=== PATIENT | male | born 1965 | race Caucasian/White ===

== ENCOUNTER 2024-11-05 18:55 | Emergency (ER) | payer OTHER, SELFPAY ==
--- NOTE | ~2024-11-05 | CT_ITS ---
EXAMINATION: CT pelvis wo con DATE: 11/05/2024 22:09 INDICATION: Urinary retention. TECHNIQUE: Computed tomography (CT) of the pelvis was performed without intravenous contrast. Automat ed exposure control and iterative reconstruction technique were employed. The dose-length product was 361.55 mGy-cm. COMPARISON: None FINDINGS: There are bilateral inguinal hernias containing fat. There are no dilated loops of bowel. T he appendix is normal. The prostate is mildly enlarged. There is diffuse bladder wall thickening, lik guzman secondary to chronic outlet obstruction. There are no pathologically enlarged lymph nodes. There is no free intraperitoneal fluid. There is mild lumbar spondylosis. IMPRESSION: 1. Diffuse bladder wall thickening, likely secondary to chronic outlet obstruction from the mildly en larged prostate. Reviewed, dictated and finalized at location A. [facility] IMPRESSION: 1. Diffuse bladder wall thickening, likely secondary to chronic outlet obstruct ion from the mildly enlarged prostate.
[2024-11-05 18:58] VITALS: BP 148/120; PULSE 92; RESP 20; TEMP 36.9; O2SAT 99
[2024-11-05 19:46] LABS: Add Urine Microscopic? NO; Appearance Urine Clear (Clear); Bilirubin Urine Negative (Negative); Blood Urine Negative (Negative); Color Urine Yellow (Yellow); Glucose Urine UA Negative (Negative); Ketones Urine Negative (Negative); Leukocyte Esterase Ur Negative LEU/UL (Negative); Nitrate Urine Negative (Negative); Protein Urine Negative (Negative); Specific Grav Ur 1.016 (1.001-1.035); Urobilinogen Urine 0.2 mg/dL (<2.0); pH Urine 5.5 (5.0-9.0)
--- NOTE | 2024-11-05 21:41 | ED.MALEGU ---
HPI - Male Genitourinary General Chief complaint: Urogenital-Male Stated complaint: unable to empty bladder X1 year Time Seen by Provider: 11/05/24 21:20 History of Present Illness HPI Narrative: 58-year-old male presenting to the emergency department accompanied by his daughter for concerns of prostate issues and urinary retention for over a year. Patient denies any symptoms aside from frequency and incomplete emptying. He states he has a family history of prostate cancer, denies any symptoms such as weight loss, fever, chills, back pain, urinary tract infection symptoms. His daughter is worried about prostate cancer. Patient herself is otherwise not concerned at this time a denies any symptoms, denies wanting a Rosenthal catheter even if he does have evidence of obstruction. Does not take any medications. Has not been seen by primary care provider in over 10 years as he was incarcerated Related Data Allergies Allergy/AdvReac Type Severity Reaction Status Date / Time No Known Allergies Allergy Verified 11/05/24 19:02 Review of Systems Review of Systems: As reviewed above in HPI Exam Narrative: GENERAL: [Well-appearing, well-nourished, and in no acute distress.] HEAD: [Normocephalic, atraumatic.] EYES: [PERRLA and EOMI.] ENT: Nares clear, no rhinorrhea or epistaxis. Mucous membranes moist. NECK: Supple. CHEST: [Clear to auscultation. No respiratory distress.] HEART: [Regular rate and rhythm]. No murmur heard. [Normal peripheral pulses.] ABDOMEN: [Soft, nondistended], [nontender], [No rigidity or guarding] EXTREMITIES: Normal range of motion. [No edema.] SKIN: Warm, dry, no rash. NEURO: [No focal deficits]. Alert and oriented [x3.] PSYCH: [Normal mood and affect.] Course Vital Signs Vital signs: Vital Signs Temperature 36.9 C 11/05/24 18:58 Pulse Rate 92 11/05/24 18:58 Respiratory Rate 20 11/05/24 18:58 Blood Pressure 148/120 H 11/05/24 18:58 Pulse Oximetry 99 11/05/24 18:58 Oxygen Delivery Room Air 11/05/24 18:58 Temperature 36.9 C 11/05/24 18:58 Pulse Rate 92 11/05/24 18:58 Respiratory Rate 20 11/05/24 18:58 Blood Pressure 148/120 H 11/05/24 18:58 Pulse Oximetry 99 11/05/24 18:58 Oxygen Delivery Room Air 11/05/24 18:58 MDM - Male Genitourinary MDM Narrative Medical decision making narrative: 58-year-old male with no reported past medical history presenting for ongoing urinary retention type symptoms for over a year including incomplete bladder emptying, frequency and hesitancy. Family history of prostate cancer. Patient of self has no B symptoms, no fever, chills, no abdominal pain or pelvic pain. He is soft nontender nondistended abdomen. Vital signs are reassuring without any tachycardia, fever, hypoxia. Daughter is expressing concern over prostate cancer and requesting workup. Urinalysis was obtained and unremarkable without a signs of infection or blood. Postvoid residual was conducted and shows a bladder volume of 126 mL. Patient is asymptomatic. A CT scan of the pelvis for attention to the prostate was ordered to assess for any enlargement or malignancy signs. Patient would likely benefit from Flomax for symptomatic BPH and establishing with a primary care provider which will provide for him upon discharge. CT scan shows BPH and chronic urinary retention type symptoms with bladder wall thickening but he has no evidence of urinary tract infection. He is not retaining significant meds urine and refused catheterization even if he was. Patient is safe and stable for discharge home at this time and will be sent home with Flomax and a referral to establish with a PCP. Patient and family were appreciative of this plan of care and safe for discharge with return precautions. Medical Records Attestation: I reviewed the patient's medical records. Lab Data Attestation: I reviewed the patient's lab results. Labs: Lab Results 11/05/24 Range/Units 19:38 Urine Color Yellow (Yellow) Urine Appearance Clear (Clear) Urine pH 5.5 (5.0-9.0) Ur Specific [place] 1.016 (1.001-1.035) Urine Protein Negative (Negative) mg/dL Urine Glucose (UA) Negative (Negative) mg/dL Urine Ketones Negative (Negative) mg/dL Ur Blood (Man) Negative (Negative) Urine Nitrate Negative (Negative) Urine Bilirubin Negative (Negative) Urine Urobilinogen 0.2 (<2.0) mg/dL Leukocyte Esterase Rfl Negative (Negative) KELVIN/UL Imaging Data Attestation: I personally reviewed and interpreted this imaging study as follows: My impression: Impressions Pelvis CT 11/05/24 22:13 IMPRESSION: 1. Diffuse bladder wall thickening, likely secondary to chronic outlet obstruction from the mildly enlarged prostate. Discharge Plan Discharge Clinical Impression: Acute on chronic urinary retention, Enlarged prostate Patient Disposition: Home, Self-Care Condition: Stable Instructions: Antibiotic Form, Urinary Retention in Men (ED), Enlarged Prostate (BPH) (ED) Additional Instructions: Your CT scan shows an enlarged prostate but no pathologically enlarged lymph nodes or any masses that appear suspicious for malignancy. This is likely the etiology behind your urinary retention type symptoms over the past year. No present concerns for malignancy however we do need to follow-up with a primary care provider for evaluation and treatment and possibly referral to a urologist. We will start him on Flomax which is a medication assisted urination in people who have enlarged prostate. If you have any new or worsening concerns or unable to urinate or void at all please return to the emergency department. Patient Language: Slovak Prescriptions: New tamsulosin [Flomax] 0.4 mg capsule 0.4 mg PO DAILY Qty: 30 0RF Follow-up/Referrals: Gigi Wright MD [Physician] - 1 Week (Establish care for PCP. BPH) PHYSICIAN,DICTATING MACHINE MECHANIC [Primary Care Provider] - Time of Disposition: 22:30
--- OUTSIDE RECORDS SUMMARY | 2024-11-05 21:47 | XMS_ITS | Continuity of Care Document ---
Author Organization [facility] Address [address] [place] [address] Phone Care Team Providers Care Business Process Engineer Name Role Phone Management, Case Unavailable Unavailable Unavailable Unavailable Unavailable Procedures Procedure Date OFFICE O/P EST 5 MIN Advance Directives Directive Yes / No Effective Date File Name No Information Encounters Encounter Description Practice Location Reason(s) For Visit Diagnoses Date Provider Providers Copied on Encounter [facility] , [address], [place], [place], [address], tel:[phone] [facility] Asthma (chief complaint)a ppointment (chief complaint) No Information Management Case. [address], [place], [place], [address], [place]. tel:[phone] OFFICE O/P EST 5 MIN [facility] , [address], [place], [place], [address], tel:[phone] [facility] Asthma (chief complaint) Counseling, Other, Specified Management Case. [address], [place], [place], [address], . tel:[phone] Family History Family Member Type Diagnosis Age At Onset No Information Payers Payer name Insurance type Covered democrat ID Authoriza tion(s) No Information Social History Type Description Quantity Date Captured Comments Sex Male Smoking Status No Information Chief Complaint And Reason For Visit From encounter dated '07/10/2014 09:09'. Asthma (chief complaint) appointment (chief complaint) Reason For Referral Reason For Referral No Information History Of Present Illness Encounter Date Complaint History Of Prese nt Illness Asthma appointment Asthma The initial visi t date was 07/03/2014. Additional information: Pt seen at [facility] at 8pm. Pt states sharing inhaler; smokes >1 ppd. Instructed pt on importance of taking own meds as directed by PCP, and s/s to seek emergent or medical care. Pt verb interest in appt. Informed pt will contact him when one is scheduled. Pt verb understanding. No other needs identified at this time (late entry). Functional Status Date Functional Assessmen t No Information Instructions Date Instruction Additional Infor mation No Information Assessments Type Assessment Date No Information Patient Care Teams Name Effective Dates (start - stop) Status Members No Information
--- OUTSIDE RECORDS SUMMARY | 2024-11-05 21:47 | XMS_ITS | Clinical Summary ---
Author Organization [facility] Address [address] [place] [address]. [place], [place] [address] [place] [id number] Care Team Providers Care Glass Mechanic Name Role Phone None, Provider Primary Care Provider Unavaila ble Allergies No known active allergies Medications No known medications Encounters Date Type Department Care Team Description 10/27/2024 6:23 PM HEEL SPLITTER - 10/27/2024 9:37 PM HEEL SPLITTER Emergency [facility] [place] [address] Maggy Khan DO Urinary Symptoms; Neurologic Problem Discharge Disposition: Home or Self Care (Routine Discharge) 10/27/2024 Travel from Last 3 Months Social History Tobacco Use Types Packs/Day Years Used Date Smoking Tobacco: Every Day Cigarettes Smokeless Tobacco: Never Tobacco Cessation:Ready to Q uit: No; Counseling Given: Not Answered Alcohol Use Standard Drinks/Week Comments Not Currently 0 (1 standard drink = 0.6 oz pur e alcohol) Sex and Gender Information Value Date Recorded Sex Assigned at Male 10/27/2024 6:43 PM HEEL SPLITTER Legal Sex Male 6:07 PM HEEL SPLITTER Gender Identity Not on file Sexual Orientation Not on file Last Filed Vital Signs Vital Sign Reading Time Taken Comments Blood Pressure 131/82 10/27/2024 9:02 PM HEEL SPLITTER Pulse 85 10/27/2024 9:02 PM HEEL SPLITTER Temperature 36.7 ??C (98 ??F) 10/27/2024 7:04 PM HEEL SPLITTER Respiratory Rate 20 10/27/2024 9:02 PM HEEL SPLITTER Oxygen Saturation 98% 10/27/2024 9:02 PM HEEL SPLITTER Inhaled Oxygen Concentration - - Weight 70.3 kg (155 lb) 10/27/2024 6:17 PM HEEL SPLITTER Height 172.7 cm (5' 8 ) 10/27/2024 6:17 PM HEEL SPLITTER Body Mass Index 23.57 10/27/2024 6:17 PM HEEL SPLITTER Plan of Treatment Health Maintenance Due Date Last Done Comments Colorectal Cancer Screening Colonoscopy (10 Years) 1965 Annual Physical 1967 Pneumococcal Vaccine: Pediat rics (0 to 5 Years) and At-Risk Patients (6 to 64 Years) (1 of 2 - PCV) 1970 Hepatitis C 1982 DTaP, Tdap and Td Vaccines ( 1 - Tdap) 1983 Zoster Vaccines (1 of 2) 2014 COVID-19 Vaccine ( - 2023-2 5 season) 2024 Influenza Adult (#1) 2024 Meningococcal B Vaccine Aged Out No l onger eligible based on patient's age to complete this topic Meningococcal Vaccine Aged Out No pete len eligible based on patient's age to complete this topic RSV Immunizations Under 20 Months Aged Out No longer eligible based on patient's age to complete this topic Procedures Procedure Name Priority Date/Time Associated Diagnosis Comments ECG 12-LEAD STAT 10/27/2024 8:24 PM HEEL SPLITTER URINALYSIS, AUTO, COMPLETE STAT 10/27/2024 7:13 PM HEEL SPLITTER COMPREHENSIVE METABOLIC PANEL STAT 10/27/2024 7:13 PM HEEL SPLITTER CBC W/DIFF AUTOMATED STAT 10/27/2024 7:13 PM HEEL SPLITTER from Last 3 Months Results * ECG 12 lead (10/27/2024 8:24 PM HEEL SPLITTER) 10/27/2024 8:24 PM HEEL SPLITTER Narrative [facility] ([facility]) RAD - 10/28/2024 8:52 AM HEEL SPLITTER ?[facility] ? [address], [place] ? Test Date: ?2024-10-27 Pat Name: ? PEE HURTADO ?Department: ?? 41 ? Room: ? [id number] Gender: ? Male ? Solar Electric Practitioner: ?? Cb : ?1965 ? Requested By: MAGGY KHAN Order Number: [id number] ? Reading MD: ?? Makenzie Najera ? Measurements Intervals ?[place] ? Rate: ? 76 ? P: ?72 ND: ? 153 ?QRS: ?51 QRSD: ? 89 ? T: ?73 QT: ? 386 ? QTc: ?435 ? Interpretive Statements SINUS RHYTHM MINIMAL VOLTAGE CRITERIA FOR LVH, CONSIDER NORMAL VARIANT ??[MEETS CRITERIA IN ONE OF: R(aVL), S(V1), R(V5), R(V5/V6)+S(V1)] Non-specific ST-T wave changes SPLITTER Procedure Note Makenzie Najera MD - 10/28/[address] Test Date: 2024-10-27 Pat Name: PEE VAISHNAVIADWOA Department: 41 Room: [place] [address] Gender: Male Solar Electric Practitioner: Ja : 1965 Requested By: MAGGY KHAN Order Number: [id number] Reading MD: Makenzie Najera Measurements Intervals [place] Rate: 76 P: 72 ND: 153 QRS: 51 QRSD: 89 T: 73 QT: 386 QTc: 435 Interpretive Statements SINUS RHYTHM MINIMAL VOLTAGE CRITERIA FOR LVH, CONSIDER NORMAL VARIANT [MEETS CRITERIAIN ONE OF: R(aVL), S(V1), R(V5), R(V5/V6)+S(V1)] Non-specific ST-T wave changes SPLITTER Maggy Khan DO ECG ORDERABLES Final Result [facility] ([facility]) RAD * (ABNORMAL) URINALYSIS, AUTO, COMPLETE (10/27/2024 7:13 PM HEEL SPLITTER) SPECIMEN TYPE URINE CLEAN CATCH 10/27/2024 6:41 PM HEEL SPLITTER [facility] COLOR (U) COLORLESS 10/27/2024 7:25 PM [facility] TRANSPARENCY CLEAR 10/27/2024 7:25 PM [facility] SPECIFIC GRAVITY (U) 1.005 1.001 - 1.030 10/27/2024 7:25 PM [facility] U PH 5.5 5.0 - 9.0 10/27/2024 7:25 PM [facility] LEUKOCYTES (U) NEGATIVE NEGATIVE 10/27/2024 7:25 PM [facility] NITRITES NEGATIVE NEGATIVE 10/27/2024 7:25 PM [facility] PROTEIN RANDOM (U) NEGATIVE <30 MG/DL 10/27/2024 7:25 PM [facility] GLUCOSE (U) NORMAL NORMAL MG/DL 10/27/2024 7:25 PM [facility] KETONES MG/DL (U) NEGATIVE NEGATIVE MG/DL 10/27/2024 7:25 PM [facility] UROBILINOGEN NORMAL NORMAL MG/DL 10/27/2024 7:25 PM [facility] BILIRUBIN (U) NEGATIVE NEGATIVE MG/DL 10/27/2024 7:25 PM [facility] BLOOD (U) NEGATIVE NEGATIVE 10/27/2024 7:25 PM [facility] WBC/HPF <1 <6 /HPF 10/27/2024 7:25 PM [facility] RBC/HPF 2 <6 /HPF 10/27/2024 7:25 PM [facility] BACTERIA (U) RARE(A) NONE /HPF 10/27/2024 7:25 PM [facility] URINE SPECIMEN OBTAINED BY CLEAN CATCH PROCEDURE / Unknown 10/27/2024 7:13 PM HEEL SPLITTER us Jani FARIAS URINE ORDERABLES Final Res ult [facility] [address] [place] [address], [place] [phone] * (ABNORMAL) COMPREHENSIVE METABOLIC PANEL (10/27/2024 7:13 PM HEEL SPLITTER) [facility] GLUCOSE 92 70 - 99 MG/DL 10/27/2024 7:36 PM HEEL SPLITTER [facility] BUN 11 7 - 18 MG/DL 10/27/2024 7:36 PM HEEL SPLITTER [facility] CREATININE S/P/B 1.12 0.7 - 1.3 MG/DL 10/27/2024 7:36 PM HEEL SPLITTER [facility] SODIUM S/P/B 134(L) 136 - 145 MMOL/L 10/27/2024 7:36 PM HEEL SPLITTER [facility] POTASSIUM S/P/B 3.7 3.5 - 5.1 MMOL/L 10/27/2024 7:36 PM HEEL SPLITTER [facility] CHLORIDE S/P/B 103 97 - 115 MMOL/L 10/27/2024 7:36 PM HEEL SPLITTER [facility] CO2 29.2 21 - 32 MMOL/L 10/27/2024 7:36 PM HEEL SPLITTER [facility] CALCIUM S/P/B 9.5 8.5 - 10.1 MG/DL 10/27/2024 7:36 PM HEEL SPLITTER [facility] BILIRUBIN TOTAL S/P/B 0.3 0.2 - 1.2 MG/DL 10/27/2024 7:36 PM [facility] Comment: THIS ASSAY IS NOT RECOMMENDED FOR PATIENTS UNDERGOING TREATMENT WITH ELTROMBOPAG DUE TO THE POTENTIAL FOR FALSELY ELEVATED RESULTS. TOTAL PROTEIN S/P/B 7.0 6.4 - 8.2 G/DL 10/27/2024 7:36 PM HEEL SPLITTER [facility] ALBUMIN S/P/B 3.7 3.4 - 5.0 G/DL 10/27/2024 7:36 PM [facility] AST 19 15 - 37 U/L 10/27/2024 7:36 PM [facility] ALT 36 16 - 60 U/L 10/27/2024 7:36 PM HEEL SPLITTER [facility] ALKALINE PHOSPHATASE S/P/B 83 50 - 136 U/L 10/27/2024 7:36 PM [facility] ANION GAP 1.8(L) 2 - 10 MMOL/L 10/27/2024 7:36 PM [facility] BUN CREATININE RATIO 9.8 6 - 26 10/27/2024 7:36 PM [facility] A/G RATIO 1.1 1.0 - 2.0 RATIO 10/27/2024 7:36 PM [facility] GFR ESTIMATE 76(L) >90 ML/MIN/1.7 3 M2 10/27/2024 7:36 PM [facility] Comment: NOTE: eGFR is not calculated for patients <18 years of age or gender unknown. This is an estimated GFR calculation using the new CKD EPI creatinine equation without race and so does not require a correction factor for race. This estimated GFR should not be used for calculating drug doses. 10/27/2024 7:13 PM HEEL SPLITTER us Jani [facility] Final Resu lt [facility] [address] [place] [address], [place] [phone] * (ABNORMAL) CBC W/DIFF AUTOMATED (10/27/2024 7:13 PM HEEL SPLITTER) WBC 8.58 4.5 - 11.0 x10'3/uL 10/27/2024 7:22 PM [facility] RBC 5.22 4.70 - 6.10 x10'6/uL 10/27/2024 7:22 PM [facility] HGB 15.2 14.0 - 18.0 G/DL 10/27/2024 7:22 PM [facility] HCT 44.8 43.0 - 54.0 % 10/27/2024 7:22 PM [facility] MCV 85.8 80.0 - 94.0 FL 10/27/2024 7:22 PM [facility] MCH 29.1 27.0 - 31.0 PG 10/27/2024 7:22 PM [facility] MCHC 33.9 32.0 - 36.0 G/DL 10/27/2024 7:22 PM [facility] RDW 13.2 11.5 - 14.5 % 10/27/2024 7:22 PM [facility] PLT 264 130 - 400 x10'3/uL 10/27/2024 7:22 PM [facility] MPV 10.2 9.3 - 12.2 FL 10/27/2024 7:22 PM [facility] DIFFERENTIAL TYPE AUTOMATED DIFFERENTIAL 10/27/2024 7:22 PM [facility] NEUTROPHILS % 61.7 % 10/27/2024 7:22 PM [facility] LYMPHOCYTES % 22.5 % 10/27/2024 7:22 PM [facility] MONOCYTES % 11.4 % 10/27/2024 7:22 PM [facility] EOSINOPHILS 3.4 % 10/27/2024 7:22 PM HEEL SPLITTER [facility] BASOPHILS 0.8 % 10/27/2024 7:22 PM HEEL SPLITTER [facility] IMMATURE GRANS % 0.2 % 10/27/19 7:22 PM HEEL SPLITTER [facility] ABS. NEUTROPHILS 5.29 1.80 - 7.70 x10'3/uL 10/27/2024 7:22 PM HEEL SPLITTER [facility] ABS. LYMPHOCYTES 1.93 1.00 - 4.80 x10'3/uL 10/27/2024 7:22 PM HEEL SPLITTER [facility] ABS. MONOCYTES 0.98(H) 0.30 - 0.82 x10'3/uL 10/27/2024 7:22 PM HEEL SPLITTER [facility] ABS. EOSINOPHILS 0.29 0.04 - 0.54 x10'3/uL 10/27/2024 7:22 PM HEEL SPLITTER [facility] ABS. BASOPHILS 0.07 0.01 - 0.08 x10'3/uL 10/27/2024 7:22 PM HEEL SPLITTER [facility] ABS. IMMATURE GRANULOCYTES 0.02 0.00 - 0.49 x10'3/uL 10/27/2024 7:22 PM [facility] 10/27/2024 7:13 PM HEEL SPLITTER us Jani [facility] Final Resu lt [facility] [address] [place] [address], from Last [address] [place] [address] [place] [address] Care Teams Glass Mechanic Relationship Specialty Start Date End Date None, Provider, MD PCP - General UNKNOWN PHYSICIAN SPECIALTY 10/27/24
[2024-11-05 22:56] VITALS: BP 142/95; PULSE 81; RESP 17; TEMP 36.4; O2SAT 98
== END 2024-11-05 22:56 | disposition home or self-care (01) ==
PROVIDERS: Emergency Provider Student in an Organized Health Care Education/Training Program
DX: R33.9 Retention of urine, unspecified (principal); N40.0 Benign prostatic hyperplasia without lower urinary tract symptoms
CPT/HCPCS: 72192; 81003; 99284

== ENCOUNTER 2024-11-25 09:06 | Outpatient (CLI) | payer OTHER, SELFPAY ==
[2024-11-25 09:47] LABS: Basophils Absolute Auto 0.1 K/mm3 (0.0-0.1); Basophils Percent Auto 1.1 % (0.2-1.2); Eosinophils Absolute Auto 0.3 K/mm3 (0-0.3); Eosinophils Percent Auto 3.7 % (0-4.4); Hematocrit 47.6 % (42.0-52.0); Hemoglobin 15.3 g/dL (14.0-18.0); Immature Granulocyte Absolute 0.01 K/mm3 (0.00-0.031); Immature Granulocyte Percent A 0.1 % (0-0.5); Lymphocytes Absolute Auto 1.84 K/mm3 (0.9-3.2); Lymphocytes Percent Auto 23.3 % (18.3-44.2); Mean Corpuscular HGB Conc 32.1 g/dl (32-36); Mean Corpuscular Volume 90.2 fl (80-100); Monocytes Absolute Auto 0.9 K/mm3 (0.1-0.6); Monocytes Percent Auto 11.4 % (2.6-8.5); Neutrophils Absolute Auto 4.8 K/mm3 (1.3-6.7); Neutrophils Percent Auto 60.4 % (45.5-73.1); Platelet Count Result 250 k/mm3 (150-375); Red Blood Count 5.28 M/mm3 (4.6-6.20); Red Cell Distribution Width 13.3 % (11.5-14.5); White Blood Count 7.9 K/mm3 (4.5-10.0)
[2024-11-25 09:59] LABS: Alanine Aminotransferase 24 U/L (6-50); Albumin Level 4.1 g/dL (3.5-5.1); Alkaline Phosphatase 75 U/L (38-126); Anion Gap 6 mmol/L (4-12); Aspartate Amino Transferase 25 U/L (17-59); Bilirubin,Total 0.7 mg/dL (0.2-1.3); Blood Urea Nitrogen 14 mg/dL (9-20); Calcium 9.5 mg/dL (8.4-10.2); Carbon Dioxide 31 mmol/L (22-30); Chloride 99 mmol/L (98-107); Cholesterol 231 mg/dL (0-200); Estimated Glomerular Filt Rate > 60; Glucose 75 mg/dL (65-110); HDL Direct 82 mg/dL; Potassium 4.4 mmol/L (3.4-5.0); Sodium 136 mmol/L (137-145); Triglycerides 84 mg/dL (<150)
[2024-11-25 10:10] LABS: LDL Cholesterol Direct 134 mg/dL
[2024-11-25 10:30] LABS: Prostate Specific Antigen 1.2 ng/mL (< OR = 4.0); Thyroid Stimulating Hormone 0.951 uIU/mL (0.465-4.680); Total Triiodothyronine (T3) 1.35 NG/ML (0.97-1.69)
[2024-11-25 11:09] LABS: Free T4 Free Thyroxine 0.97 ng/dL (0.78-2.19)
[2024-11-25 11:40] LABS: Hepatitis C Virus Antibody Negative (Negative)
--- OUTSIDE RECORDS SUMMARY | 2024-11-25 11:55 | XMS_ITS | Continuity of Care Document ---
Author Organization [facility] Address [address] [place] [address] Phone Care Team Providers Care Basket Sorter Name Role Phone Management, Case Unavailable Unavailable Unavailable Unavailable Unavailable Procedures Procedure Date OFFICE O/P EST 5 MIN Advance Directives Directive Yes / No Effective Date File Name No Information Encounters Encounter Description Practice Location Reason(s) For Visit Diagnoses Date Provider Providers Copied on Encounter [facility] , [address], [place], [place], [address], tel:[phone] [facility] Asthma (chief complaint)a ppointment (chief complaint) No Information Management Case. [address], [place], [place], [address], [place]. tel:[phone] OFFICE O/P EST 5 MIN [facility] , [address], [place], [place], [address], tel:[phone] [facility] Asthma (chief complaint) Counseling, Other, Specified Management Case. [address], [place], [place], [address], . tel:[phone] Family History Family Member Type Diagnosis Age At Onset No Information Payers Payer name Insurance type Covered alliance party ID Authoriza tion(s) No Information Social History [...] was 07/03/2014. Additional information: Pt seen [facility] at 8pm. Pt states sharing inhaler; smokes [...]
--- OUTSIDE RECORDS SUMMARY | 2024-11-25 11:55 | XMS_ITS | Clinical Summary ---
Author Organization [facility] Address [facility] [place] [address] Care Team Providers Care Bromination Equipment Operator Name Role Phone None, Provider MD Primary Care Provider Unavaila ble Allergies No known active allergies Medications No known medications Encounters Date Type Department Care Team Description 10/27/2024 6:23 PM NON DESTRUCTIVE TESTING SUPERVISOR - 10/27/2024 9:37 PM NON DESTRUCTIVE TESTING SUPERVISOR Emergency [facility] [place] [address] Maggy Khan DO Urinary Symptoms; Neurologic Problem [...] Sex Assigned at Male 10/27/2024 6:43 PM NON DESTRUCTIVE TESTING SUPERVISOR Legal Sex Male 6:07 PM NON DESTRUCTIVE TESTING SUPERVISOR Gender Identity Not on file Sexual Orientation Not on file Last Filed Vital Signs Vital Sign Reading Time Taken Comments Blood Pressure 131/82 10/27/2024 9:02 PM NON DESTRUCTIVE TESTING SUPERVISOR Pulse 85 10/27/2024 9:02 PM NON DESTRUCTIVE TESTING SUPERVISOR Temperature 36.7 C (98 F) 10/27/2024 7:04 PM NON DESTRUCTIVE TESTING SUPERVISOR Respiratory Rate 20 10/27/2024 9:02 PM NON DESTRUCTIVE TESTING SUPERVISOR Oxygen Saturation 98% 10/27/2024 9:02 PM NON DESTRUCTIVE TESTING SUPERVISOR Inhaled Oxygen Concentration - - Weight 70.3 kg (155 lb) 10/27/2024 6:17 PM NON DESTRUCTIVE TESTING SUPERVISOR Height 172.7 cm (5' 8 ) 10/27/2024 6:17 PM NON DESTRUCTIVE TESTING SUPERVISOR Body Mass Index 23.57 10/27/2024 6:17 PM NON DESTRUCTIVE TESTING SUPERVISOR Plan of Treatment Health Maintenance Due Date Last Done Comments Colorectal Cancer Screening Colonoscopy (10 Years) 1965 Annual Physical 1967 Pneumococcal Vaccine: Pediat rics (0 to 5 Years) and At-Risk Patients (6 to 64 Years) (1 of 2 - PCV) 1970 Hepatitis C 1982 DTaP, Tdap and Td Vaccines ( 1 - Tdap) 1983 Zoster Vaccines (1 of 2) 2014 COVID-19 Vaccine (1 - 2023-2 5 season) 2024 Influenza Adult [...] Comments ECG 12-LEAD STAT 10/27/2024 8:24 PM NON DESTRUCTIVE TESTING SUPERVISOR URINALYSIS, AUTO, COMPLETE STAT 10/27/2024 7:13 PM NON DESTRUCTIVE TESTING SUPERVISOR COMPREHENSIVE METABOLIC PANEL STAT 10/27/2024 7:13 PM NON DESTRUCTIVE TESTING SUPERVISOR CBC W/DIFF AUTOMATED STAT 10/27/2024 7:13 PM NON DESTRUCTIVE TESTING SUPERVISOR from Last 3 Months Results * ECG 12 lead (10/27/2024 8:24 PM NON DESTRUCTIVE TESTING SUPERVISOR) 10/27/2024 8:24 PM NON DESTRUCTIVE TESTING SUPERVISOR Narrative [facility] ([facility] RAD - 10/28/2024 8:52 AM NON DESTRUCTIVE TESTING SUPERVISOR [address] Test Date: 2024-10-27 Pat Name: PEE HURTADO Department: 41 Room: [place] [address] Gender: Male After School Caregiver: Ja : 1965 Requested By: MAGGY KHAN Order Number: [id number] Reading MD: Makenzie Najera Measurements Intervals [place] Rate: 76 P: 72 SC: 153 QRS: 51 QRSD: 89 T: 73 QT: 386 QTc: 435 Interpretive Statements SINUS RHYTHM MINIMAL VOLTAGE CRITERIA FOR LVH, CONSIDER NORMAL VARIANT [MEETS CRITERIA IN ONE OF: R(aVL), S(V1), R(V5), R(V5/V6)+S(V1)] Non-specific ST-T wave changes DESTRUCTIVE TESTING SUPERVISOR Procedure Note Makenzie Najera MD - 10/28/[address] Test Date: 2024-10-27 Pat Name: PEE HURTADO Department: 41 Room: [place] [address] Gender: Male After School Caregiver: Ja : 1965 Requested By: MAGGY KHAN Order Number: [id number] Reading MD: Makenzie Najera Measurements Intervals [place] Rate: 76 P: 72 SC: 153 QRS: 51 QRSD: 89 T: 73 QT: 386 QTc: 435 Interpretive Statements SINUS RHYTHM MINIMAL VOLTAGE CRITERIA FOR LVH, CONSIDER NORMAL VARIANT [MEETS CRITERIAIN ONE OF: R(aVL), S(V1), R(V5), R(V5/V6)+S(V1)] Non-specific ST-T wave changes DESTRUCTIVE TESTING SUPERVISOR Maggy Khan DO ECG ORDERABLES Final Result [facility] ([facility] RAD * (ABNORMAL) URINALYSIS, AUTO, COMPLETE (10/27/2024 7:13 PM NON DESTRUCTIVE TESTING SUPERVISOR) SPECIMEN TYPE URINE CLEAN CATCH 10/27/2024 6:41 PM NON DESTRUCTIVE TESTING SUPERVISOR [facility] COLOR (U) COLORLESS 10/27/2024 7:25 PM NON DESTRUCTIVE TESTING SUPERVISOR [facility] TRANSPARENCY CLEAR 10/27/2024 7:25 PM NON DESTRUCTIVE TESTING SUPERVISOR [facility] SPECIFIC GRAVITY (U) 1.005 1.001 - 1.030 10/27/2024 7:25 PM [facility] U PH 5.5 5.0 - 9.0 10/27/2024 7:25 PM [facility] LEUKOCYTES (U) NEGATIVE NEGATIVE 10/27/2024 7:25 PM NON DESTRUCTIVE TESTING SUPERVISOR [facility] NITRITES NEGATIVE NEGATIVE 10/27/2024 7:25 PM [facility] PROTEIN RANDOM (U) NEGATIVE <30 MG/DL 10/27/2024 7:25 PM [facility] GLUCOSE (U) NORMAL NORMAL MG/DL 10/27/2024 7:25 PM [facility] KETONES MG/DL (U) NEGATIVE NEGATIVE MG/DL 10/27/2024 7:25 PM [facility] UROBILINOGEN NORMAL NORMAL MG/DL 10/27/2024 7:25 PM [facility] BILIRUBIN (U) NEGATIVE NEGATIVE MG/DL 10/27/2024 7:25 PM [facility] BLOOD (U) NEGATIVE NEGATIVE 10/27/2024 7:25 PM [facility] WBC/HPF <1 <6 /HPF 10/27/2024 7:25 PM [facility] RBC/HPF 2 <6 /HPF 10/27/2024 7:25 PM [facility] BACTERIA (U) RARE(A) NONE /HPF 10/27/2024 7:25 PM [facility] URINE SPECIMEN OBTAINED BY CLEAN CATCH PROCEDURE / Unknown 10/27/2024 7:13 PM NON DESTRUCTIVE TESTING SUPERVISOR us Jani FARIAS URINE ORDERABLES Final Res ult Performing Organization Address City/State/[facility] Co de Phone Number [facility] [address] [place] [address], * (ABNORMAL) COMPREHENSIVE METABOLIC PANEL (10/27/2024 7:13 PM NON DESTRUCTIVE TESTING SUPERVISOR) [facility] Signature GLUCOSE 92 70 - 99 MG/DL 10/27/2024 7:36 PM NON DESTRUCTIVE TESTING SUPERVISOR [facility] BUN 11 7 - 18 MG/DL 10/27/2024 7:36 PM [facility] CREATININE S/P/B 1.12 0.7 - 1.3 MG/DL 10/27/2024 7:36 PM [facility] SODIUM S/P/B 134(L) 136 - 145 MMOL/L 10/27/2024 7:36 PM [facility] POTASSIUM S/P/B 3.7 3.5 - 5.1 MMOL/L 10/27/2024 7:36 PM [facility] CHLORIDE S/P/B 103 97 - 115 MMOL/L 10/27/2024 7:36 PM [facility] CO2 29.2 21 - 32 MMOL/L 10/27/2024 7:36 PM [facility] CALCIUM S/P/B 9.5 8.5 - 10.1 MG/DL 10/27/2024 7:36 PM [facility] BILIRUBIN TOTAL S/P/B 0.3 0.2 - 1.2 MG/DL 10/27/2024 7:36 PM [facility] Comment: THIS ASSAY IS NOT RECOMMENDED FOR PATIENTS UNDERGOING TREATMENT WITH ELTROMBOPAG DUE TO THE POTENTIAL FOR FALSELY ELEVATED RESULTS. TOTAL PROTEIN S/P/B 7.0 6.4 - 8.2 G/DL 10/27/2024 7:36 PM [facility] ALBUMIN S/P/B 3.7 3.4 - 5.0 G/DL 10/27/2024 7:36 PM [facility] AST 19 15 - 37 U/L 10/27/2024 7:36 PM [facility] ALT 36 16 - 60 U/L 10/27/2024 7:36 PM [facility] ALKALINE PHOSPHATASE S/P/B 83 50 - 136 U/L 10/27/2024 7:36 PM [facility] ANION GAP 1.8(L) 2 - 10 MMOL/L 10/27/2024 7:36 PM [facility] BUN CREATININE RATIO 9.8 6 - 26 10/27/2024 7:36 PM [facility] A/G RATIO 1.1 1.0 - 2.0 RATIO 10/27/2024 7:36 PM [facility] GFR ESTIMATE 76(L) >90 ML/MIN/1.7 3 M2 10/27/2024 7:36 PM [facility] Comment: NOTE: eGFR is not calculated for patients <18 years of age or gender unknown. This is an estimated GFR calculation using the new CKD EPI creatinine equation without race and so does not require a correction factor for race. This estimated GFR should not be used for calculating drug doses. 10/27/2024 7:13 PM NON DESTRUCTIVE TESTING SUPERVISOR us Jani [facility] Final Resu lt [facility] [address] [place] [address], [place] [phone] * (ABNORMAL) CBC W/DIFF AUTOMATED (10/27/2024 7:13 PM NON DESTRUCTIVE TESTING SUPERVISOR) WBC 8.58 4.5 - 11.0 x10'3/uL 10/27/2024 7:22 PM [facility] RBC 5.22 4.70 - 6.10 x10'6/uL 10/27/2024 7:22 PM [facility] HGB 15.2 14.0 - 18.0 G/DL 10/27/2024 7:22 PM [facility] HCT 44.8 43.0 - 54.0 % 10/27/2024 7:22 PM [facility] MCV 85.8 80.0 - 94.0 FL 10/27/2024 7:22 PM [facility] MCH 29.1 27.0 - 31.0 PG 10/27/2024 7:22 PM [facility] MCHC 33.9 32.0 - 36.0 G/DL 10/27/2024 7:22 PM [facility] RDW 13.2 11.5 - 14.5 % 10/27/2024 7:22 PM [facility] PLT 264 130 - 400 x10'3/uL 10/27/2024 7:22 PM [facility] MPV 10.2 9.3 - 12.2 FL 10/27/2024 7:22 PM [facility] DIFFERENTIAL TYPE AUTOMATED DIFFERENTIAL 10/27/2024 7:22 PM [facility] NEUTROPHILS % 61.7 % 10/27/2024 7:22 PM [facility] LYMPHOCYTES % 22.5 % 10/27/2024 7:22 PM [facility] MONOCYTES % 11.4 % 10/27/2024 7:22 PM [facility] EOSINOPHILS 3.4 % 10/27/2024 7:22 PM [facility] BASOPHILS 0.8 % 10/27/2024 7:22 PM NON DESTRUCTIVE TESTING SUPERVISOR [facility] IMMATURE GRANS % 0.2 % 10/27/19 7:22 PM NON DESTRUCTIVE TESTING SUPERVISOR [facility] ABS. NEUTROPHILS 5.29 1.80 - 7.70 x10'3/uL 10/27/2024 7:22 PM NON DESTRUCTIVE TESTING SUPERVISOR [facility] ABS. LYMPHOCYTES 1.93 1.00 - 4.80 x10'3/uL 10/27/2024 7:22 PM NON DESTRUCTIVE TESTING SUPERVISOR [facility] ABS. MONOCYTES 0.98(H) 0.30 - 0.82 x10'3/uL 10/27/2024 7:22 PM NON DESTRUCTIVE TESTING SUPERVISOR [facility] ABS. EOSINOPHILS 0.29 0.04 - 0.54 x10'3/uL 10/27/2024 7:22 PM NON DESTRUCTIVE TESTING SUPERVISOR [facility] ABS. BASOPHILS 0.07 0.01 - 0.08 x10'3/uL 10/27/2024 7:22 PM NON DESTRUCTIVE TESTING SUPERVISOR [facility] ABS. IMMATURE GRANULOCYTES 0.02 0.00 - 0.49 x10'3/uL 10/27/2024 7:22 PM NON DESTRUCTIVE TESTING SUPERVISOR [facility] 10/27/2024 7:13 PM NON DESTRUCTIVE TESTING SUPERVISOR us Jani [facility] Final Resu lt [facility] [address] [place] [address], [place] [phone] from Last [address] [place] [address] [place] Care Teams Bromination Equipment Operator Relationship Specialty Start Date End Date None, Provider, PCP - General UNKNOWN PHYSICIAN SPECIALTY 10/27/24
== END 2024-11-25 09:07 | disposition home or self-care (01) ==
LOC: ANHLAB 09:14
PROVIDERS: PCP Family Medicine
DX: E78.5 Hyperlipidemia, unspecified (principal); I10 Essential (primary) hypertension; R53.82 Chronic fatigue, unspecified
CPT/HCPCS: 36415; 80053; 80061; 84153; 84439; 84443; 84480; 85025; 86803